=== PATIENT | female | born 1980 | race Caucasian/White ===

== ENCOUNTER 2022-06-30 02:41 | Emergency (ER) | payer SELFPAY ==
[2022-06-30 02:43] VITALS: BP 132/83; PULSE 89; RESP 18; TEMP 36.6; O2SAT 100; BMI 19.0
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
[2022-06-30 04:23] VITALS: RESP 16
[2022-06-30] MEDS: oxyCODONE-APAP 5-325 mg Tablet 2 TAB PO (04:23)
[2022-06-30 04:49] VITALS: BP 128/89; PULSE 76; RESP 15; O2SAT 95
[2022-06-30 06:00] VITALS: BP 106/70; PULSE 61; O2SAT 98
[2022-06-30 07:54] VITALS: BP 112/76; PULSE 72; RESP 16; O2SAT 100
== END 2022-06-30 07:56 | disposition home or self-care (01) ==
PROVIDERS: Emergency Provider Emergency Medicine
DX: S20.212A Contusion of left front wall of thorax, initial encounter (principal); S80.01XA Contusion of right knee, initial encounter; V89.2XXA Person injured in unspecified motor-vehicle accident, traffic, initial encounter; Y92.410 Unspecified street and highway as the place of occurrence of the external cause
CPT/HCPCS: 70450; 71250; 72125; 73562; 74176; 99284